=== PATIENT | male | born 1950 | race Caucasian/White ===

== ENCOUNTER 2018-01-31 09:23 | Outpatient (CLI) | payer MEDICARE ==
--- NOTE | 2018-01-31 11:39 | MRI ---
MRI LUMBAR SPINE NONCONTRAST: DATE: 01/31/18. HISTORY: A 67-year-old male with lumbar spondylosis, M47.816, and bilateral lumbar radiculopathy. COMPARISON: None. FINDINGS: Perivertebral spaces demonstrate no major abnormality. For the purposes of this report, it will be a ssumed that there are 5 lumbar-type vertebrae. Vertebral body heights are maintained. Conus medulla ris terminates at L2. No major bone marrow signal abnormality. T12-L1: Normal. L1-2: Normal. L2-3: Disk desiccation, mild disk space narrowing, prominent diffuse disk bulge, mild degenerative f acet changes. No high-grade neural foraminal stenosis. Mild central spinal canal stenosis. L3-4: Mild degenerative facet changes. Disk desiccation. Mild disk space narrowing. Diffuse disk bulge. Mild bilateral neural foraminal stenosis. Mild to moderate central canal stenosis. L4-5: Severe bilateral degenerative facet changes, including moderate bony hypertrophy and bilateral joint effusions. This results in grade I anterolisthesis of L4 on L5. Moderate disk space narrowin g. Disk desiccation. Large diffuse disk bulge. Very severe central spinal canal stenosis and extre colin severe thecal sac stenosis, with severe crowding of cauda equina and obliteration of CSF signal. This results in moderate tortuosity of the cauda equina at all levels superior to this level, up to the upper L2 level. Exacerbating the thickened ligamentum flavum, there is a small approximately 1. 3 cm craniocaudal x 0.4 cm anteroposterior x 0.3 cm transverse synovial cyst arising from the right f acet joint, contributing to the severe central spinal canal stenosis. Moderate bilateral neural fora kristie stenosis. L5-S1: Disk space maintained. Disk desiccation. Mild diffuse disk bulge. Mild right neural forami nal stenosis and mild to moderate left neural foraminal stenosis. No central spinal canal stenosis. Degenerative facet changes are mild. IMPRESSION: Very severe central spinal canal stenosis at L4-5 due to a combination of grade I spondylolisthesis, severe facet osteoarthrosis, diffuse disk bulge, and right synovial cyst. CASSANDRA Cook POS: ANNA
== END 2018-01-31 09:24 | disposition home or self-care (01) ==
LOC: TBSIIMAG 09:23
PROVIDERS: ATTEND Psychiatry & Neurology Neurology
DX: M47.896 Other spondylosis, lumbar region (principal); M51.26 Other intervertebral disc displacement, lumbar region; M48.061 Spinal stenosis, lumbar region without neurogenic claudication; M43.16 Spondylolisthesis, lumbar region
CPT/HCPCS: 72148